=== PATIENT | female | born 1975 | race Caucasian/White ===

== ENCOUNTER 2019-11-17 15:13 | Emergency (ER) | payer SELFPAY ==
[~2019-11-17] VITALS: Ht 165.1 cm; Wt 126.6 kg
--- NOTE | 2019-11-17 15:41 | ED Abdominal Pain ---
General Chief Complaint: Abdominal/GI Problems Stated Complaint: ABD PAIN Source of Information: Patient Exam Limitations: No Limitations History of Present Illness Date Seen by Provider: Nov 17, 2019 Time Seen by Provider: 15:25 Initial Comments The patient is a pleasant obese 43-year-old female who presents for evaluation of abdominal pain and constipation. She states that her last bowel movement was on , 3 days ago. She states that she tried some MiraLAX and a suppository without any relief. She does not feel like she has any hard stool in her rectum and has not seen any blood. Her only surgery was a tubal ligation many years ago. She denies fevers or chills, nausea or vomiting, back or flank pain, urinary complaints, chest pain or shortness of breath, dizziness or syncope. She is alert and oriented 4, calm, and appears to be in no distress this time. Timing/Duration: 3-4 Days Severity/Quality: Moderate Location: Generalized Abdomen Radiation: No Radiation Activities at Onset: None Associated Symptoms: Denies Symptoms Allergies and Home Medications Allergies Coded Allergies: No Known Drug Allergies (Unverified , 11/17/19) Patient Home Medication List Home Medication List Reviewed: Yes Review of Systems Review of Systems Constitutional: no symptoms reported EENTM: No Symptoms Reported Respiratory: No Symptoms Reported Cardiovascular: No Symptoms Reported Gastrointestinal: Abdominal Pain, Constipated Genitourinary: No Symptoms Reported Musculoskeletal: no symptoms reported Skin: no symptoms reported Psychiatric/Neurological: No Symptoms Reported Endocrine: No Symptoms Reported Hematologic/Lymphatic: No Symptoms Reported All Other Systems Reviewed Negative Unless Noted: Yes Past Sombpsu-Ipptxe-Yognkx Hx Past Med/Social Hx: Reviewed Nursing Past Med/Soc Hx Physical Exam Vital Signs Vital Signs - First Documented 11/17/19 15:20 Temp 37.3 Pulse 105 Resp 16 B/P (MAP) 155/96 (115) Pulse Ox 100 O2 Delivery Room Air Capillary Refill : Height/Weight/BMI Height: '" Weight: lbs. oz. kg; BMI Method: General Appearance: WD/WN, no apparent distress HEENT: PERRL/EOMI, pharynx normal Neck: full range of motion, normal inspection Respiratory: lungs clear, normal breath sounds, no respiratory distress, no accessory muscle use Cardiovascular: regular rate, rhythm, no edema, no JVD, no murmur Gastrointestinal: normal bowel sounds, non tender, soft, no pulsatile mass, other (no focal abdominal tenderness appreciated on exam, benign, soft, no distention, no rigidity) Extremities: normal range of motion, non-tender, no pedal edema Neurologic/Psychiatric: [employer] establishment [employer] II-XII nml as tested, no motor/sensory deficits, alert, normal mood/affect, oriented x 3 Skin: normal color, warm/dry Progress/Results/Core Measures Results/Orders Lab Results Laboratory Tests Test 11/17/19 15:25 11/17/19 15:40 Range/Units Urine Color YELLOW Urine Clarity CLEAR Urine pH 6.0 5-9 Urine Specific [place] >=1.030 1.016-1.022 Urine Protein NEGATIVE NEGATIVE Urine Glucose (UA) NEGATIVE NEGATIVE Urine Ketones NEGATIVE NEGATIVE Urine Nitrite NEGATIVE NEGATIVE Urine Bilirubin NEGATIVE NEGATIVE Urine Urobilinogen 0.2 < = 1.0 MG/DL Urine Leukocyte Esterase NEGATIVE NEGATIVE Urine RBC (Auto) NEGATIVE NEGATIVE Urine RBC RARE /HPF Urine WBC RARE /HPF Urine Squamous Epithelial Cells 10-25 H /HPF Urine Crystals NONE /LPF Urine Bacteria NEGATIVE /HPF Urine Casts NONE /LPF Urine Mucus MODERATE H /LPF Urine Culture Indicated NO White Blood Count 11.7 H 4.3-11.0 10^3/uL Red Blood Count 4.32 L 4.35-5.85 10^6/uL Hemoglobin 10.4 L 11.5-16.0 G/DL Hematocrit 34 L 35-52 % Mean Corpuscular Volume 78 L 80-99 FL Mean Corpuscular Hemoglobin 24 L 25-34 PG Mean Corpuscular Hemoglobin Concent 31 L 32-36 G/DL Red Cell Distribution Width 16.5 H 10.0-14.5 % Platelet Count 351 130-400 10^3/uL Mean Platelet Volume 9.4 7.4-10.4 FL Immature Granulocyte % (Auto) 0 % Neutrophils (%) (Auto) 79 H 42-75 % Lymphocytes (%) (Auto) 12 12-44 % Monocytes (%) (Auto) 6 0-12 % Eosinophils (%) (Auto) 2 0-10 % Basophils (%) (Auto) 0 0-10 % Neutrophils # (Auto) 9.2 H 1.8-7.8 X 10^3 Lymphocytes # (Auto) 1.4 1.0-4.0 X 10^3 Monocytes # (Auto) 0.7 0.0-1.0 X 10^3 Eosinophils # (Auto) 0.2 0.0-0.3 10^3/uL Basophils # (Auto) 0.1 0.0-0.1 10^3/uL Immature Granulocyte # (Auto) 0.0 0.0-0.1 10^3/uL Sodium Level 141 135-145 MMOL/L Potassium Level 3.8 3.6-5.0 MMOL/L Chloride Level 106 98-107 MMOL/L Carbon Dioxide Level 22 21-32 MMOL/L Anion Gap 13 5-14 MMOL/L Blood Urea Nitrogen 11 7-18 MG/DL Creatinine 0.75 0.60-1.30 MG/DL Estimat Glomerular Filtration Rate > 60 BUN/Creatinine Ratio 15 Glucose Level 105 70-105 MG/DL Calcium Level 9.0 8.5-10.1 MG/DL Corrected Calcium 9.0 8.5-10.1 MG/DL Total Bilirubin 0.2 0.1-1.0 MG/DL Aspartate Amino Transf (AST/SGOT) 20 5-34 U/L Alanine Aminotransferase (ALT/SGPT) 20 0-55 U/L Alkaline Phosphatase 74 40-136 U/L Total Protein 7.2 6.4-8.2 GM/DL Albumin 4.0 3.2-4.5 GM/DL Amylase Level 40 25-125 U/L Lipase 17 8-78 U/L My Orders Orders - LORRI FUNES DO Comprehensive Metabolic Panel (11/17/19 15:15) Lipase (11/17/19 15:15) Amylase (11/17/19 15:15) Ua Culture If Indicated (11/17/19 15:15) Ed Iv/Invasive Line Start (11/17/19 15:15) Cbc With Automated Diff (11/17/19 15:15) Ct Abdomen/Pelvis W (11/17/19 15:35) Iohexol Injection (Omnipaque 350 Mg/Ml 1 (11/17/19 16:15) Received Contrast (Hold Metformin- Contr (11/17/19 16:15) Sodium Chloride Flush (Catheter Flush Sy (11/17/19 16:15) Ns (Ivpb) (Sodium Chloride 0.9% Ivpb Bag (11/17/19 16:15) Ns Iv 1000 Ml (Sodium Chloride 0.9%) (11/17/19 16:15) Medications Given in ED Current Medications Medications Dose Ordered Sig/Omar Route Start Time Stop Time Status Last Admin Dose Admin Iohexol 100 ml ONCE ONCE IV 11/17/19 16:15 11/17/19 16:16 DC 11/17/19 16:21 100 ML Sodium Chloride 10 ml NEEDED PRN IV 11/17/19 16:15 11/17/19 16:21 10 ML Sodium Chloride 100 ml ONCE ONCE IV 11/17/19 16:15 11/17/19 16:16 DC 11/17/19 16:21 80 ML Vital Signs/I&O 11/17/19 15:20 Temp 37.3 Pulse 105 Resp 16 B/P (MAP) 155/96 (115) Pulse Ox 100 O2 Delivery Room Air Progress Progress Note : Progress Note @8516 - patient updated on lab and imaging results suggesting possible mild colitis. Advised the patient to take the prescribed medications and follow up with her doctor the next 2-3 days. Workup shows no evidence of small bowel obstruction or severe constipation or fecal impaction. Advised the patient to return to the emergency Department immediately for new or worsening symptoms. S he expresses verbal understanding and agreement with the plan and is stable for discharge. Diagnostic Imaging Diagonstic Imaging: CT Comments [facility], [place] NAME: ARIANE DAVIS I [facility] REC#: [id number] PT STATUS: REG ER : 1975 PHYSICIAN: LORRI FUNES DO ADMIT DATE: 11/17/19/ER FS Draft Date of Exam:11/17/19 CT ABDOMEN/PELVIS W PROCEDURE: CT abdomen and pelvis with contrast. TECHNIQUE: Multiple contiguous axial images were obtained through the abdomen and pelvis after administration of intravenous contrast. Auto Exposure Controls were utilized during the CT exam to meet ALARA standards for radiation dose reduction. All CT scans use one or more of the following dose optimizing techniques: automated exposure control, MA and/or KvP adjustment based on patient size and exam type or iterative reconstruction. INDICATION: Abdominal pain, constipation. COMPARISON: None available. FINDINGS: Minimal lingular scarring and/or atelectasis. Otherwise, the visualized lung bases are clear. 5 mm hypodensity within the anterior aspect of the liver is too small to completely characterize. Otherwise, the liver is unremarkable. The spleen is unremarkable. The adrenal glands are unremarkable. The pancreas is unremarkable. The gallbladder is decompressed without adjacent fat stranding. Central hypodensities are noted within the left kidney. Otherwise, the bilateral kidneys and ureters are unremarkable. No aneurysmal dilatation of the abdominal aorta. The urinary bladder is decompressed, therefore not well evaluated. The uterus is retroverted. The uterus and adnexal structures are otherwise unremarkable. Colonic diverticulosis without CT evidence of diverticulitis. Mural thickening of the sigmoid colon is present, though this region is decompressed. The appendix is unremarkable. No bowel obstruction or pneumatosis. No significant adenopathy, free air or free fluid within the abdomen or pelvis. Mild scattered osseous degenerative changes, particularly at L5/S1. No acute osseous abnormality. IMPRESSION: 1. Mural thickening of the sigmoid colon, favored to relate to poor distention, though mild colitis would be an additional consideration. No evidence of bowel obstruction or perforation. 2. Central hypodensities within the inferior pole of the left kidney, favored to relate to peripelvic cysts. Renal ultrasound could be obtained for further evaluation. 3. Retroverted uterus. Dictated on workstation # [id number] Dict: 11/17/19 1647 Trans: 11/17/19 1733 [facility] [id number] Interpreted by: GUADALUPE MCDONALD MD Electronically signed by: Departure Impression Primary Impression: Constipation Disposition: 01 HOME, SELF-CARE Condition: Stable Departure-Patient Inst. Decision time for Depature: 17:45 Referrals: [facility] [place] Patient Instructions: Colitis (DC), Constipation, Adult (DC) Add. Discharge Instructions: Take the prescribed medicine as directed. Follow-up with your doctor in the next 2-3 days. Return to the Emergency Department immediately for new or worsening symptoms. Scripts Docusate Sodium (Colace) 100 Mg Capsule 100 MG PO BID for 7 Days, #14 CAP Prov: LORRI FUNES DO 11/17/19 Moxifloxacin HCl (Moxifloxacin HCl) 400 Mg Tablet 400 MG PO DAILY for 7 Days, #7 TAB Prov: LORRI FUNES DO 11/17/19 LORRI FUNES DO Nov 17, 2019 15:41
[2019-11-17] MEDS ORDERED: IOHEXOL 350 MG/ML 100 ML (OMNIPAQUE 350) VIAL IV ONE (16:15)
[2019-11-17] MEDS ORDERED: NS 100 ML (IVPB) BAG IV ONE (16:15)
[2019-11-17] MEDS ORDERED: NS IV 1000 ML 1,000 ML IV SCH (16:15)
[2019-11-17] MEDS ORDERED: HOLD METFORMIN - RECEIVED CONTRAST 20 ML VIAL IV SCH (16:15)
[2019-11-17] MEDS ORDERED: CATHETER FLUSH 10 ML SYR IV PRN (16:15)
[2019-11-17 16:19] LABS: ALANINE AMINOTRANSFERASE 20 U/L (0-55); ALKALINE PHOSPHATASE 74 U/L (40-136); AMYLASE 40 U/L (25-125); BILIRUBIN,TOTAL 0.2 MG/DL (0.1-1.0); BUN/CREATININE RATIO 15; CARBON DIOXIDE 22 MMOL/L (21-32); CHLORIDE 106 MMOL/L (98-107); CREATININE SERUM 0.75 MG/DL (0.60-1.30); GFR ESTIMATED > 60; GLUCOSE 105 MG/DL (70-105); LIPASE 17 U/L (8-78); POTASSIUM 3.8 MMOL/L (3.6-5.0); SODIUM 141 MMOL/L (135-145); TOTAL PROTEIN 7.2 GM/DL (6.4-8.2)
[2019-11-17 16:20] LABS: BILIRUBIN,URINE NEGATIVE (NEGATIVE); CLARITY,URINE CLEAR; COLOR,URINE YELLOW; GLUCOSE, URINE (UA) NEGATIVE (NEGATIVE); KETONES,URINE NEGATIVE (NEGATIVE); LEUKOCYTE ESTERASE ,URINE NEGATIVE (NEGATIVE); NITRITE,URINE NEGATIVE (NEGATIVE); PROTEIN,URINE NEGATIVE (NEGATIVE)
[2019-11-17 16:21] LABS: BACTERIA,URINE NEGATIVE /HPF; RBC,URINE RARE /HPF; WBC,URINE RARE /HPF
[2019-11-17 16:22] LABS: BASOPHILS # (AUTO) 0.1 10^3/uL (0.0-0.1); BASOPHILS % (AUTO) 0 % (0-10); EOSINOPHILS # (AUTO) 0.2 10^3/uL (0.0-0.3); EOSINOPHILS % (AUTO) 2 % (0-10); HEMATOCRIT 34 % (35-52); HEMOGLOBIN 10.4 G/DL (11.5-16.0); LYMPHOCYTES # (AUTO) 1.4 X 10^3 (1.0-4.0); LYMPHOCYTES % (AUTO) 12 % (12-44); MEAN CORPUSCULAR HEMOGLOBIN 24 PG (25-34); MEAN CORPUSCULAR HGB CONC 31 G/DL (32-36); MEAN CORPUSCULAR VOLUME 78 FL (80-99); MEAN PLATELET VOLUME 9.4 FL (7.4-10.4); MONOCYTES # (AUTO) 0.7 X 10^3 (0.0-1.0); MONOCYTES % (AUTO) 6 % (0-12); NEUTROPHILS # (AUTO) 9.2 X 10^3 (1.8-7.8); NEUTROPHILS % (AUTO) 79 % (42-75); PLATELET COUNT 351 10^3/uL (130-400); WHITE BLOOD COUNT 11.7 10^3/uL (4.3-11.0)
--- NOTE | 2019-11-17 17:33 | Diagnostic Imaging Report ---
PROCEDURE: CT abdomen and pelvis with contrast. TECHNIQUE: Multiple contiguous axial images were obtained through the abdomen and pelvis after administration of intravenous contrast. Auto Exposure Controls were utilized during the CT exam to meet ALARA standards for radiation dose reduction. All CT scans use one or more of the following dose optimizing techniques: automated exposure control, MA and/or KvP adjustment based on patient size and exam type or iterative reconstruction. INDICATION: Abdominal pain, constipation. COMPARISON: None available. FINDINGS: Minimal lingular scarring and/or atelectasis. Otherwise, the visualized lung bases are clear. 5 mm hypodensity within the anterior aspect of the liver is too small to completely characterize. Otherwise, the liver is unremarkable. The spleen is unremarkable. The adrenal glands are unremarkable. The pancreas is unremarkable. The gallbladder is decompressed without adjacent fat stranding. Central hypodensities are noted within the left kidney. Otherwise, the bilateral kidneys and ureters are unremarkable. No aneurysmal dilatation of the abdominal aorta. The urinary bladder is decompressed, therefore not well evaluated. The uterus is retroverted. The uterus and adnexal structures are otherwise unremarkable. Colonic diverticulosis without CT evidence of diverticulitis. Mural thickening of the sigmoid colon is present, though this region is decompressed. The appendix is unremarkable. No bowel obstruction or pneumatosis. No significant adenopathy, free air or free fluid within the abdomen or pelvis. Mild scattered osseous degenerative changes, particularly at L5/S1. No acute osseous abnormality. IMPRESSION: 1. Mural thickening of the sigmoid colon, favored to relate to poor distention, though mild colitis would be an additional consideration. No evidence of bowel obstruction or perforation. 2. Central hypodensities within the inferior pole of the left kidney, favored to relate to peripelvic cysts. Renal ultrasound could be obtained for further evaluation. 3. Retroverted uterus. Dictated by: Dictated on workstation # [id number]
[2019-11-17] MEDS ORDERED: DOCU-143 PO (17:52)
[2019-11-17] MEDS ORDERED: MOXI400T31 PO (17:52)
[2019-11-17] MEDS ORDERED: MAGNESIUM CITRATE 300 ML BTL PO ONE (18:00)
[2019-11-17 18:04] VITALS: BP 123/78
== END 2019-11-17 18:04 | disposition home or self-care (01) ==
LOC: ER FS 15:15
DX: K59.00 Constipation, unspecified (principal)
CPT/HCPCS: 36415; 74177; 80053; 81000; 82150; 83690; 85025

== ENCOUNTER → 2020-09-08 | Outpatient (CLI) | payer SELFPAY ==
[~2020-09-08] MED LIST: DOCU-143 PO; MOXI400T31 PO
== END ==
LOC: CARD 15:00
PROVIDERS: ATTEND Nurse Practitioner Family
DX: I51.7 Cardiomegaly (principal); Z86.16 Personal history of COVID-19
CPT/HCPCS: 93306